=== PATIENT | male | born 1940 | race Caucasian/White ===

== ENCOUNTER 2017-02-06 10:42 | Observation (INO) | payer MEDICARE, OTHER ==
[2017-02-02 09:25] LABS: HEMATOCRIT 45.9 % (40.0-51.0); HEMOGLOBIN 16.3 g/dL (13.6-17.8)
[2017-02-02 09:39] LABS: BUN (BLOOD UREA NITROGEN) 18 MG/DL (6-23); CHLORIDE, SERUM 107 MMOL/L (96-112); CO2 (CARBON DIOXIDE) 24 MMOL/L (24-34); CREATININE 0.84 MG/DL (0.70-1.30); GFR AFRICAN AMERICAN 99 ML/MIN (>=60); GFR NON AFRICAN AMERICAN 85 ML/MIN (>=60); GLUCOSE, SERUM 129 MG/DL (60-99); POTASSIUM, SERUM 4.1 MMOL/L (3.5-5.3); SODIUM, SERUM 142 MMOL/L (135-148)
[2017-02-02 09:41] LABS: CALCIUM, SERUM 9.6 MG/DL (8.5-10.4)
[2017-02-02 09:48] LABS: ASCORBIC ACID (UR NOT ORDER) NEG (NEG); BILIRUBIN, URINE NEGATIVE (NEG); KETONE, URINE NEGATIVE (NEG); LEUKOCYTE ESTERASE(NOT OR NEG (NEG); WBC (NOT ORDERED) (RFLEX) 3 (0-5)
--- NOTE | ~2017-02-06 | OP ---
Record Of Operation [facility] [address] [place]. [address] NAME: FATIMAH CARABALLO : 40 STATUS : ADM IN PAT#: [id number] AGE: 76 ADM/REG DATE : 02/06/17 MR#: [id number] REPORT SERV DATE: 02/06/17 DICTATED BY: JEFFREY BURRELL JR. DATE: 02/06/17 REPORT STATUS : Draft TRANSCRIBED BY: MODL DATE: 02/06/17 DATE OF PROCEDURE: 02/06/2017 SURGEON: Jeffrey Burrell M.D. PREOPERATIVE DIAGNOSIS: Benign prostatic hypertrophy. POSTOPERATIVE DIAGNOSIS: Benign prostatic hypertrophy. PROCEDURE PERFORMED: Transurethral resection of the prostate. COMPLICATIONS: None. CONSULTATIONS: None. ANESTHESIA: General with endotracheal tube. SPECIMENS: Prostate chips. DRAINS: 24-Sudanese three-way Vasquez catheter. ESTIMATED BLOOD LOSS: 5 mL. INDICATION: Mr. Fatimah Caraballo is a 76-year-old male, who I have been following for benign prostatic hypertrophy. He has not responded positively to medical therapy and on cystoscopic exam, he has significant trilobar hypertrophy, with a large median lobe protruding into the bladder base. He comes today for transurethral resection of the prostate. PROCEDURE IN DETAIL: After the patient was identified and proper informed consent was obtained, he was taken to the operating room. General anesthesia was performed without complication using an endotracheal tube. He was then prepped and draped in normal sterile fashion in the lithotomy position. Cystoscopic examination of the urethra and bladder reveals again trilobar hypertrophy with a large median lobe. Both ureteral orifices were in the normal position, normal size, somewhat tucked in behind the median lobe, but easily visible with the rigid scope. The rest of the bladder mucosa was normal, except for some mild trabeculation. There were no diverticula, stones, or tumors noted. The cystoscope was removed. I replaced it with a 26-Sudanese resectoscope with yellow loop, and the median lobe along with the lateral lobes were then resected down to surgical capsule from the prostate apex to the base at the bladder neck. I did not go beyond the verumontanum distally as to protect the external urethral sphincter. Hemostasis was achieved using electrocautery. After the chips had been irrigated free of the bladder. I then placed a 24-Sudanese 3-way Vasquez catheter with light traction and continuous bladder irrigation. The patient was awakened in the operating room and transferred to the postanesthesia care in stable condition. Record Of Operation [place] [address] [facility]. [address] NAME: FATIMAH CARABALLO : 40 STATUS : ADM IN PAT#: [id number] AGE: 76 ADM/REG DATE : 02/06/17 MR#: [id number] REPORT SERV DATE: 02/06/17 DICTATED BY: JEFFREY BURRELL JR. DATE: 02/06/17 REPORT STATUS : Draft TRANSCRIBED BY: MARGO DATE: 02/06/17 LYNDSAY/MARGO Jeffrey Burrell Jr., M.D. / [id number] CC: Jeffrey Burrell Jr., M.D.
[~2017-02-06 10:42] MED LIST: APRES25 PO; APRES50 PO; ASAB PO; ATACAND16 PO; BACDS PO; CLINDA150 PO; COSAMIN DS1 TAB PO; DEPO-TESTOS200 MG/ML IM; ENDOCET1 TA3 PO; FISH-EPA1000 MG PO; FLAXSEED OIL1000 MG PO; GLUCCHONDR PO; LOP25 PO; LOPID6 PO; LORTAB10 PO; MOBIC15 MG PO; MULTIVIT/MIN PO; NEUR300 PO; NORCO1 TA2 PO; NORCO1 TAB PO; NORV10 PO; NORV5 PO; TEARS NATURA OPH; TESTOST CYP200 MG/ML IM; TESTOSTERONE INJ IM; V40 PO; VITAMIN E PO; VITE1000 PO
[2017-02-06 15:08] LABS: HEMOGLOBIN 14.4 g/dL (13.6-17.8)
[2017-02-06 15:13] LABS: HEMATOCRIT 40.3 % (40.0-51.0)
[2017-02-07 05:31] LABS: HEMATOCRIT 41.2 % (40.0-51.0); HEMOGLOBIN 14.5 g/dL (13.6-17.8)
[2017-02-07] MEDS ORDERED: PCET PO (09:08)
== END 2017-02-07 12:22 | disposition home or self-care (01) ==
LOC: SDC/OF 10:42 → PACU 14:47 → 4SO 16:05
PROVIDERS: Urology
PROC: 0VT08ZZ Resection of Prostate, Via Natural or Artificial Opening Endoscopic (ICD-10-PCS; principal; 2017-02-06 12:45)
DX: N40.0 Benign prostatic hyperplasia without lower urinary tract symptoms (principal); I10 Essential (primary) hypertension; E78.5 Hyperlipidemia, unspecified; M19.90 Unspecified osteoarthritis, unspecified site; R97.20 Elevated prostate specific antigen [PSA]; I47.1 Supraventricular tachycardia; Z88.5 Allergy status to narcotic agent; Z88.6 Allergy status to analgesic agent; Z88.8 Allergy status to other drugs, medicaments and biological substances; Z87.442 Personal history of urinary calculi; Z96.651 Presence of right artificial knee joint; Z90.49 Acquired absence of other specified parts of digestive tract; Z98.890 Other specified postprocedural states
CPT/HCPCS: 36415; 80048; 81001; 84295; 85014; 85018; 86850; 86900; 86901; 88305; 93005; 96372; 96374; 96376; A9270-GY; G0378; J1170; J2405; J2710; J3010